=== PATIENT | female | born 1955 | race Caucasian/White ===

== ENCOUNTER 2017-07-05 07:39 | Day surgery (SDC) | payer BC ==
[2017-07-04 14:34] VITALS: BMI 21.0
--- NOTE | 2017-07-04 16:31 | History and Physical ---
History & Physical Date Jul 04, 2017. Chief Complaint left foot pain History of Present Illness The patient is a 62 year old female with complaints of left 1st MTP pain with tx for osteoarthritis of the 1st MTP joint for some time. The patient failed all conservative management and is now being set up for surgical tx. Past Medical/Surgical History PMH: Depression Past surgical hx: Toe surgery in 01/25 Social hx: Denies alcohol and tobacco use. Allergies Coded Allergies: No Known Allergies (Unverified , 07/04/17) PER PRE-ANESTHESIA QUESTIONNAIRE Home Medications Scheduled Escitalopram Oxalate (Lexapro), 20 MG PO QAM Multivitamin (Multivitamin), 1 TAB PO 3XWK Physical Examination Skin: warm/dry, no rash Eyes: normal inspection ENT: normal ENT inspection Head: normocephalic, atraumatic Neck: supple, no adenopathy, trachea midline Respiratory/Chest: lungs clear, normal breath sounds, no respiratory distress Cardiovascular: regular rate, rhythm Abdomen / GI: normal bowel sounds, non tender Extremities: + pertinent finding (Left foot: 1st MTP hallux rigidus. Dorsal prominence. 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 All potential risks, benefits, complications, alternatives, and rehab have been discussed and the patient wishes to proceed. She will be scheduled for 07.05.17.
[~2017-07-05] VITALS: Ht 170.2 cm; Wt 61.4 kg
[~2017-07-05 07:39] MED LIST: BUPIVACAINE 0.25% 30 ML VIAL ONE; CEFAZOLIN 2000MG IV PUSH 15 ML IV SCH; ESCI1TAB10 PO; LACTATED RINGER'S 1000ML 1,000 ML IV SCH; MULT-506 PO; ROPIVACAINE 0.5% 5 MG/ML 30 ML VIAL ONE
[2017-07-05 08:03] VITALS: BP 139/86; PULSE 55; TEMP 36.4; O2SAT 98; Ht 170.2 cm; Wt 61.4 kg
--- NOTE | 2017-07-05 08:12 | History & Physical Bridge Note ---
H&P Re-Evaluation Bridge Note: I have examined the patient, reviewed the History & Physical and in the interval since the performance of the History & Physical I have noted the following changes of clinical significance: No changes noted
[2017-07-05] MEDS ORDERED: ONDANSETRON INJ 2 MG/ML 2 ML VIAL ONE (08:15)
[2017-07-05] MEDS ORDERED: DEXAMETHASONE SOD INJ 4 MG/ML VIAL ONE (08:15)
[2017-07-05] MEDS ORDERED: PROPOFOL IV EMULSION 10 MG/ML 20 ML VIAL IV ONE (08:15)
[2017-07-05] MEDS ORDERED: MIDAZOLAM HCL 1 MG/ML 2ML VIAL ONE ×2 (08:15→08:16)
[2017-07-05] MEDS ORDERED: LIDOCAINE HCL 2% 2 ML VIAL (20MG/ML) ONE (08:15)
[2017-07-05] MEDS ORDERED: FENTANYL CITRATE INJ 50 MCG/1 ML 2 ML VIAL ONE ×2 (08:16→10:35)
[2017-07-05] MEDS ORDERED: BACITRACIN 50000 UNIT VIAL ONE (09:24)
[2017-07-05] MEDS ORDERED: FENTANYL CITRATE INJ 50 MCG/1 ML 2 ML VIAL IV PRN (09:30)
[2017-07-05] MEDS ORDERED: ATROPINE SULFATE 0.1 MG/ML 5ML SYR IV PRN ×2 (09:30→12:30)
[2017-07-05] MEDS ORDERED: ONDANSETRON INJ 2 MG/ML 2 ML VIAL IV PRN ×2 (09:30→12:30)
[2017-07-05] MEDS ORDERED: EpHEDrine SULFATE INJ 50 MG/ML AMP IV PRN ×2 (09:30→12:30)
[2017-07-05] MEDS ORDERED: HYDROmorphone INJ 0.5 MG/0.5 ML SYR IV PRN (09:30)
--- NOTE | 2017-07-05 10:03 | Discharge Instructions ---
Discharge Instructions Date of Service Jul 05, 2017. Admission Reason for Admission: Left Ankle/Foot Osteoarthritis Discharge Discharge Diagnosis / Problem: left 1st metatarsophalangeal osteoarthritis Discharge Goals Goal(s): Decrease discomfort, Improve function Activity Recommendations Activity Limitations: per Instructions/Follow-up section Weightbearing Status: Left partial (Heel weightbearing only if tolerated. Otherwise, non-weightbearing.) . Instructions / Follow-Up Instructions / Follow-Up ACTIVITY RECOMMENDATIONS: Limitations: Heel weight bearing only if able to tolerate. SPECIAL CARE INSTRUCTIONS: * Take Aspirin 81 mg by mouth every 12 hours for 30 days. * Some drainage onto the dressing is normal and is no cause for alarm. * Some swelling is natural especially after walking. * When resting, keep your foot elevated above the level of your heart. * Call [facility] if you notice: -Increased drainage -Fever over 101 degrees F -Severe constant pain BANDAGE: * Leave bandage/cast in place unless otherwise directed. * Keep bandage/cast dry at all times. PIN CARE: * Leave pins alone. * If pins come loose or fall out, notify physician. FOLLOW UP VISIT WITH DR. VERGARA If appointment is not already scheduled: Please call [facility] after you get home today to schedule a follow-up appointment for [address] Vergara at . Current Hospital Diet Patient's current hospital diet: Discharge Diet Recommended Diet: Regular Diet Pending Studies Studies pending at discharge: no Medical Emergencies . Who to Call and When: Medical Emergencies: If at any time you feel your situation is an emergency, please call 911 immediately. . Non-Emergent Contact Non-Emergency issues call your: Surgeon Call Non-Emergent contact if: temperature is above 101, your pain is not controlled, your pain is worsening, wound has increased drainage, wound has increased redness . "Provider Documentation" section prepared by Andrew Molina. .
[2017-07-05] MEDS ORDERED: OXYC-57 PO (10:05)
[2017-07-05] MEDS ORDERED: ASPI81TA28 PO (10:05)
[2017-07-05] MEDS ORDERED: PROM25TA9 PO (10:05)
[2017-07-05] MEDS ORDERED: GLYCOPYRROLATE INJ 0.2 MG/ML VIAL ONE (10:17)
[2017-07-05] MEDS ORDERED: EpHEDrine SULFATE 50MG/5ML SYR ONE (10:17)
--- NOTE | 2017-07-05 11:03 | [facility] Post Operative Brief Note ---
Immediate Operative Summary Operative Date Jul 05, 2017. Pre-Operative Diagnosis Left 1st metatarsophalangeal joint osteoarthritis Left 1st metatarsophalangeal joint Hallux Rigidus with dorsal exostosis Post-Operative Diagnosis Left 1st metatarsophalangeal joint osteoarthritis Left 1st metatarsophalangeal joint Hallux Rigidus with dorsal exostosis Procedure(s) Performed 1. Left Cheilectomy 1st Metatarsophalangeal 2. 1st Metatarsophalangeal Hemiarthroplasty with 10mm Cartiva Implant Surgeon Dr. Aldo Zavala Bilingual Social Worker Surgeon(s) Andrew Molina PA-C Estimated Blood Loss 1 ML Findings Consistent with Post-Op Diagnosis Specimens NONE PER SURGEON Drains None Anesthesia Type General Regional Complication(s) none Disposition Accompanied Pt To Recover: no Disposition: Recovery Room / PACU
[2017-07-05] MEDS ORDERED: OXYCODONE/ACETAMINOPHEN 5-325 TAB PO PRN (11:15)
--- NOTE | 2017-07-05 11:31 | DIAGNOSTIC IMAGING REPORT ---
LEFT FOOT FLUOROSCOPIC IMAGES CLINICAL HISTORY: LT RECONSTRUCTION 1ST METATARSAL COMPARISON STUDY: No previous studies for comparison. Fluoroscopy time: 10 seconds. FINDINGS: These 2 fluoroscopic images demonstrate postsurgical findings involving the distal left first metatarsal and metatarsophalangeal joint. There are no unexpected radiopaque foreign bodies. No fracture is identified. IMPRESSION: Fluoroscopic images demonstrating post surgical findings within the distal left first metatarsal and left first metatarsophalangeal joint. Electronically signed by: Kirby Arellano M.D. 07/05/2017 11:29 AM Dictated Date/Time: 07/05/2017 11:28 AM
--- NOTE | 2017-07-05 11:48 | DIAGNOSTIC IMAGING REPORT ---
L FOOT MIN 3 VIEWS ROUTINE HISTORY: 62 years-old Female left foot status post surgery of the left foot. Osteoarthritis. COMPARISON: Left foot spot fluoroscopic images 07/05/2017 TECHNIQUE: 3 views of the left foot FINDINGS: Postoperative changes of the left distal aspect first metatarsal head suggest osteotomy changes. There is satisfactory alignment of the first MTP joint with moderate soft tissue swelling and deep tissue air, likely expected postsurgical findings. No retained foreign body. Mild multidigit interphalangeal osteoarthritis. Type III accessory navicular. Dystrophic appearing calcifications are seen within the distribution of the distal Achilles tendon. IMPRESSION: Postsurgical changes of the first metatarsal head without postoperative complication identified. The above report was generated using voice recognition software. It may contain grammatical, syntax or spelling errors. Electronically signed by: Portillo Abreu M.D. 07/05/2017 11:46 AM Dictated Date/Time: 07/05/2017 11:44 AM
--- NOTE | 2017-07-05 12:04 | Anesthesiology Progress Note ---
Anesthesia Post Op Note Date & Time Jul 05, 2017 at 12:04 Vital Signs Pain Intensity: 0 Vital Signs Past 12 Hours Date Time Temp Pulse Resp B/P (MAP) Pulse Ox O2 Delivery O2 Flow Rate FiO2 07/05/17 12:00 63 16 136/78 100 Room Air 07/05/17 11:50 74 16 129/76 100 Room Air 07/05/17 11:40 74 16 143/86 100 Room Air 07/05/17 11:30 71 16 127/90 100 Oxymask 10 07/05/17 11:20 69 16 162/83 100 Oxymask 10 07/05/17 11:10 36.1 90 16 163/90 100 Oxymask 10 07/05/17 08:03 36.4 55 18 139/86 (103) 98 Room Air Notes Mental Status: alert / awake / arousable, participated in evaluation Pt Amnestic to Procedure: Yes Nausea / Vomiting: adequately controlled Pain: adequately controlled Airway Patency, RR, SpO2: stable & adequate BP & HR: stable & adequate Hydration State: stable & adequate Anesthetic Complications: no major complications apparent Anesthetic Complications: block working well.
[2017-07-05 12:15] VITALS: BP 140/66; PULSE 63; TEMP 36.7; O2SAT 100
[2017-07-05 12:52] VITALS: BP 123/69; PULSE 85; TEMP 36.8; O2SAT 98
--- NOTE | 2017-07-05 13:26 | OPERATIVE REPORT ---
DATE OF OPERATION: 07/05/2017 PREOPERATIVE DIAGNOSES: 1. Left foot hallux rigidus. 2. Left first metatarsophalangeal joint degenerative joint disease with exostoses. POSTOPERATIVE DIAGNOSES: Same as above. PROCEDURES: 1. Left foot first metatarsophalangeal joint hemiarthroplasty with 10 mm Cartiva implant. 2. Left first metatarsophalangeal joint cheilectomy. SURGEON: Aldo Zavala DO WARPER FIXER: Andrew Molina PA-C, who was present for patient positioning, sterile prep and drape, management of retractors and instruments. He was present through the critical portions of the case including wound closure, application of sterile dressing and transport of the patient to recovery. ANESTHESIA: General LMA with popliteal block. SPECIMENS: None. DRAINS: None. COMPLICATIONS: None. BLOOD LOSS: 1 mL. PERTINENT HISTORY: This is a 62-year-old female who had degenerative arthritis of the left foot first metatarsophalangeal joint. 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 She had significant discomfort and pain which was unrelenting. Seen in clinic, she had radiographs and CT scan noting significant articular cartilage loss with marginal osteophytes surrounding the left foot first metatarsophalangeal joint. The patient was then scheduled for surgery as indicated. All potential risks, benefits, complications, alternatives, rehab, potential for incomplete relief of symptoms, need for further surgery, DVT, PE, , persistent pain, swelling, scarring, weakness, neurovascular injury, wound complications, hardware failure, nonunion, malunion and bone fracture were discussed with the patient. The patient decided to proceed with procedure as indicated. DESCRIPTION OF PROCEDURE: The patient received a popliteal block in the preop holding area, she was taken to the operative suite, placed supine on the operating room table and after review of the consent and identification of proper operative site, the patient was then anesthetized, LMA was placed. Left lower extremity was then sterilely prepped and draped in the usual fashion, elevated and exsanguinated with an Esmarch bandage and Esmarch tourniquet applied over sterile surgical towel at the level of the ankle. Next, a 15 blade scalpel was used to make an incision over the dorsum of the left foot first metatarsophalangeal joint. Incision was made over the prior incision. Incision was deepened to the subcutaneous tissue and scar. Meticulous hemostasis was achieved with electrocautery. The extensor hallucis longus was identified, freed with a 15 blade scalpel along its medial border and retracted laterally with a Jaziel rakes. Next, dorsal capsule and extensor digitorum brevis was then incised in line with skin incision with a 15 blade scalpel and elevated both medially and laterally. This revealed the first metatarsophalangeal joint. There is noted to be exostoses of the proximal phalanx and the first metatarsal head. The capsule was then elevated medially and laterally exposing the entirety of the joint and a rongeur was then used to resect the exostoses of the first metatarsal head and the proximal phalanx of the great toe. After the exostoses were resected, the wound was copiously irrigated with sterile normal saline and then a guide pin was placed in the distal aspect of the first metatarsal placed under live fluoroscopic assistance. Next, the appropriate sizer was used noting a 10 mm diameter implant would be most appropriate for the first metatarsal head incised leaving at least a 2 mm circumferential rim of bone. Next, the router reamer was then passed over the guide pin and performed all the way down below the level of the depth stop. Next, this was removed and debris was then irrigated clear with sterile normal saline with bacitracin. Once this was completed, the 10 mm Cartiva implant was then impacted into the distal aspect of the first metatarsal. After removal of the guide pin. This implant seated completely and circumferentially. Next, trial range of motion was performed and approximately 85 degrees dorsiflexion and 30 degrees of plantar flexion were achieved on the table. The joint was noted to be stable. Wound was once again irrigated with sterile normal saline with bacitracin. Final radiographs were obtained in AP, lateral, and oblique views noting adequate buffer with excellent range of motion and the dorsal capsule was then closed using interrupted 3-0 Vicryl. Next, the skin was closed using 4-0 nylon. A sterile compressive forefoot dressing was applied overwrapped with a Coban. The tourniquet was released. The patient was placed into a low tide walking boot. The patient was then awakened and taken to recovery in stable condition. I attest to the content of the Intraoperative Record and any orders documented therein. Any exception s are noted below.
== END 2017-07-05 12:55 | disposition home or self-care (01) ==
LOC: C.ACU 07:39
PROVIDERS: ATTEND Orthopaedic Surgery Sports Medicine
DX: M20.22 Hallux rigidus, left foot (principal); M19.072 Primary osteoarthritis, left ankle and foot; M25.775 Osteophyte, left foot; F32.9 Major depressive disorder, single episode, unspecified; Z98.890 Other specified postprocedural states; Z79.899 Other long term (current) drug therapy